=== PATIENT | male | born 1965 ===

== ENCOUNTER 2018-05-28 06:37 | Day surgery (SDC) | payer OTHER ==
[~2018-05-28 06:37] MED LIST: ADVAIR HFA 230/12 GM IH; CLONAZEPAM2 MG PO; LAMICTAL200 M1 PO; LOSARTAN-HCTZ1 EAC1 PO; METOPROLOL SUCC50 MG PO; SEROPHENE50 MG PO; WELLBUTRIN XL150 M1 PO
== END 2018-05-28 19:05 | disposition home or self-care (01) ==
LOC: CIR.AMB 06:37
DX: M24.831 Other specific joint derangements of right wrist, not elsewhere classified (principal)